=== PATIENT | female | born 2000 | race Caucasian/White ===

== ENCOUNTER 2024-06-21 10:11 | Outpatient (AMB) | payer BC, SELFPAY ==
--- NOTE | 2024-06-21 10:12 | AM.OFFWIN_ITS ---
Intake Vital Signs 06/21/24 10:13 Height 5 ft 10 in Weight 179 lb BMI 25.7 BP 114/66 Blood Pressure Location Lt brachial Position Sitting Pulse 67 Pulse Source Pulse Oximeter Temp 97.9 F Temp Source Oral Pulse Oximetry (%) 99 Oxygen Delivery Method Room Air Intake Visit Reasons: EP-cold symptoms Intake Note: pt c/o cold symptoms. (Cough,congestion,sore throat,swollen tonsils,ear and sinus pressure) Started Thursday Patient Tobacco Use Status: Never used Tobacco Allergies latex [LATEX] Allergy (Mild, Verified 06/21/24 10:12) ITCHING Do you need a note to return to daycare/school/sports/work: Yes HPI HPI Comments History of Present Illness Details Patient is a 23-year-old female complaining of 3 days of a productive cough with thick yellow sputum, head congestion, sinus pain, ear pain, sore throat and swollen tonsils. She states she has used a Neti pot twice, taken some Sudafed which seemed to help a little bit, Advil and Advil cold and sinus which did not seem to help so she stopped taking it. She states she has a history of strep which is usually negative on the rapid but positive on the culture. She says this does not feel like strep to her. She denies any fevers, shortness of breath or chest pain. She denies a history of asthma [facility] Social History Patient Tobacco Use Status: Never used Tobacco Review of Systems Const All systems reviewed & are unremarkable except as noted in HPI and below Physical Exam Vital Signs: Last Vital Signs Temp 97.9 F 06/21/24 10:13 Pulse 67 06/21/24 10:13 BP 114/66 06/21/24 10:13 Pulse Ox 99 06/21/24 10:13 Oxygen Delivery Method Room Air 06/21/24 10:13 BMI result Body Mass Index 25.7 Const General: cooperative, healthy appearing, comfortable and no acute distress Orientation/consciousness: patient oriented x3 Limitations: no limitations HEENT Head: Yes normal to inspection Ears: hearing grossly normal bilaterally, external ears normal and TM's normal bilaterally General nose exam: Normal external nose present, Normal nares present and No nasal discharge present Face and sinus: Yes normal facial exam and Yes sinuses nontender Mouth: Normal oral and palatal mucosa present and moist mucous membranes Throat: Yes tonsils normal, Yes uvula midline and Yes posterior oropharynx abnormal (Erythema) Eyes General: appearance normal, both eyes and all related structures Neck Neck: Yes normal visual inspection Resp Effort & Inspection: normal respiratory effort, able to speak in complete sentences, Actively coughing, no respiratory distress, not tachypneic, no tripod positioning and no use of accessory muscles Auscultation: clear to auscultation bilaterally Cardio Rate: regular rate Rhythm: regular rhythm Heart sounds: normal S1 and S2 Skin General skin exam: no rashes or lesions noted Neuro General: patient oriented x3 Extrem General: Yes normal to inspection and Yes no clubbing, cyanosis or edema Results AMB Rapid Strep AMB Rapid Strep Negative Last Edit by MADDY Edgar on 06/21/24 10:36 Assessment & Plan Assessment & Plan (1) Sinusitis: Code(s): J32.9 - Chronic sinusitis, unspecified Qualifiers: Sinusitis location: maxillary Chronicity: acute Recurrence: non- recurrent Qualified Code(s): J01.00 - Acute maxillary sinusitis, unspecified Plan: Rapid strep in office was negative, we will send culture please on physical exam, not true exudate but a whiteness of the posterior oropharynx. Also sent flu COVID and RSV, recommended she use a Neti pot as well as Flonase. Educated patient on proper use of Flonase. Also recommended a decongestant. Plan See above Orders: Orders SARS-CoV2/FLU/RSV Today J06.9 - Acute upper respiratory infection, unspecified AMB Rapid Strep Screen Today Z13.9 - Encounter for screening, unspecified Throat Culture Today J06.9 - Acute upper respiratory infection, unspecified Coding Level of Care Code New Pt Level 3 (29600) Diagnoses Acute non-recurrent maxillary sinusitis J01.00 Sinusitis location: maxillary Chronicity: acute Recurrence: non-recurrent
[2024-06-21 10:13] VITALS: BP 114/66; PULSE 67; TEMP 36.6; O2SAT 99; BMI 25.7
== END 2024-06-21 11:36 | disposition home or self-care (01) ==
PROVIDERS: PCP Pediatrics; Visit Provider Physician Assistant
DX: Z13.9 Encounter for screening, unspecified (principal); J01.00 Acute maxillary sinusitis, unspecified

== ENCOUNTER 2024-06-21 10:11 | Outpatient (REF) | payer BC, SELFPAY ==
[2024-06-21 13:52] LABS: Influenza A PCR NEGATIVE (Negative); Influenza B PCR NEGATIVE (Negative); Resp Syncy Virus RNA Qual PCR NEGATIVE (Negative); SARS COV2 PCR INHOUSE NEGATIVE (Negative)
== END 2024-06-21 10:12 | disposition home or self-care (01) ==
LOC: HO.LAB 10:11
PROVIDERS: PCP Pediatrics; Visit Provider Physician Assistant
DX: J06.9 Acute upper respiratory infection, unspecified (principal)
CPT/HCPCS: 0241U; 87070; 87880

== ENCOUNTER 2024-09-07 11:25 | Outpatient (AMB) | payer BC, SELFPAY ==
--- NOTE | 2024-09-07 11:32 | AM.OFFWIN_ITS ---
Intake Vital Signs 09/07/24 11:34 Height 5 ft 10 in Weight 178 lb 4 oz BMI 25.6 BP 122/70 Blood Pressure Location Lt brachial Position Sitting Pulse 101 H Pulse Source Pulse Oximeter Temp 98.4 F Temp Source Temporal Artery Scan Pulse Oximetry (%) 99 Oxygen Delivery Method Room Air Intake Visit Reasons: EP-sore throat, pain swallowing, running nose Intake Note: Pt presents to the office today for c/o sore throat, runny nose, pain when swallowing, bilateral ear pain, and a headache x4 days. Patient Tobacco Use Status: Never used Tobacco Allergies latex [LATEX] Allergy (Mild, Verified 09/07/24 11:36) ITCHING HPI HPI Comments History of Present Illness Details History The patient is a 24 year old female presenting with sore throat and nasal congestion. She reports that the sore throat began 3 days ago and has progressively worsened. The pain is especially noticeable upon swallowing, and she experienced sleep disruption due to the discomfort, attempting to alleviate symptoms with Advil and Tylenol, which were ineffective. A low-grade fever of 99.2?F was noted, though not considered a significant fever by the patient. No cough was observed initially, but she started using guaifenesin to manage mucus production, resulting in minimal improvement and the presence of productive cou gh. The patient denies any shortness of breath, wheezing, or history of asthma. She noted a white patch in the back of her throat in the middle of the night last night but it is now gone, she denies a history of tonsil stones. The patient has a history of frequent streptococcal infections in childhood and experienced infectious mononucleosis, characterized by multiple episodes of streptococcal pharyngitis during one summer. Due to her occupation at a [employer] with exposure to numerous children, the patient is at a higher risk for recurrent infections. She expresses concern about being contagious due to an upcoming birthday gathering and wishes to ensure that she is not taking antibiotics unnecessarily. She mentions ear pressure but denies sinus tenderness or significant respiratory symptoms aside from transient wheezing relieved by clearing the airway. Previous treatments for similar conditions involved rapid and culture-based testing, with particular sensitivity to negative rapid tests that later yielded positive culture results. Physical Exam General: Cooperative, healthy appearing, comfortable and no acute distress Orientation/consciousness: Patient oriented x3 Limitations: No limitations Head: Normal to inspection Ears: Hearing grossly normal bilaterally, external ears normal and TM's normal bilaterally Nose: Normal external nose present, Normal nares present and No nasal discharge present Face and sinus: Normal facial exam and Yes sinuses nontender Mouth: Normal oral and palatal mucosa present and moist mucous membranes Throat: Yes tonsils normal, Yes uvula midline. Posterior oropharynx erythema, small area of blanching but not true exudate Eyes: Appearance normal, both eyes and all related structures Neck: Normal visual inspection Respiratory: Clear to auscultation bilaterally. Normal respiratory effort, able to speak in complete sentences, no respiratory distress, not tachypneic, no tripod positioning and no use of accessory muscles Cardiovascular: Regular rate and rhythm. Normal S1 and S2 Skin: No rashes or lesions noted Neuro: Patient oriented x3 Extremities: Normal to inspection and Yes no clubbing, cyanosis or edema PFSH Social History Patient Tobacco Use Status: Never used Tobacco Review of Systems Const All systems reviewed & are unremarkable except as noted in HPI and below Physical Exam Vital Signs: Last Vital Signs Temp 98.4 F 09/07/24 11:34 Pulse 101 H 09/07/24 11:34 BP 122/70 09/07/24 11:34 Pulse Ox 99 09/07/24 11:34 Oxygen Delivery Method Room Air 09/07/24 11:34 BMI result Body Mass Index 25.6 Results AMB Rapid Strep AMB Rapid Strep Negative Last Edit by Natali Tena CMA on 09/07/24 11:45 Assessment & Plan Assessment & Plan (1) Pharyngitis: Code(s): J02.9 - Acute pharyngitis, unspecified Qualifiers: Pharyngitis/tonsillitis etiology: unspecified etiology Qualified Code(s): J02.9 - Acute pharyngitis, unspecified Plan: Plan Acute Pharyngitis: A pharyngeal swab was taken to determine the presence of Streptococcus; initial rapid results were negative, but a culture was ordered due to historical false negatives. Empirical treatment with Augmentin was initiated to ensure coverage prior to the patient's social event. If the culture yields negative results, the patient will be advised to discontinue antibiotics. Symptomatic treatment is recommended including cool liquids and topical throat sprays for pain relief. Guaifenesin use should continue to manage mucus, though resolution of symptoms is anticipated with conservative measures. Flu, covid and rsv testing was sent. Follow-up: Pending culture results, the patient will be informed regarding the need to continue or discontinue antibiotics. Additionally, a note was provided to excuse the patient from work to prevent worsening of symptoms and spread of potential infection. Patient was informed and verbally consented to the use of an ambient scribe for clinic note documentation during this visit Orders: Orders AMB Rapid Strep Screen Today Z13.9 - Encounter for screening, unspecified Throat Culture Today J02.9 - Acute pharyngitis, unspecified SARS-CoV2/FLU/RSV Today J06.9 - Acute upper respiratory infection, unspecified Medications: New amoxicillin-pot clavulanate 875-125 mg 1 tab PO Q12H 14 tabs 0RF Coding Level of Care Code New Pt Level 3 (98548) Diagnoses Pharyngitis, unspecified etiology J02.9 Pharyngitis/tonsillitis etiology: unspecified etiology
[2024-09-07 11:34] VITALS: BP 122/70; PULSE 101; TEMP 36.9; O2SAT 99; BMI 25.6
== END 2024-09-07 12:23 | disposition home or self-care (01) ==
PROVIDERS: PCP Pediatrics; Visit Provider Physician Assistant
DX: J02.9 Acute pharyngitis, unspecified (principal)

== ENCOUNTER 2024-09-07 11:25 | Outpatient (REF) | payer BC, SELFPAY ==
[2024-09-07 14:16] LABS: Influenza A PCR NEGATIVE (Negative); Influenza B PCR NEGATIVE (Negative); Resp Syncy Virus RNA Qual PCR NEGATIVE (Negative); SARS COV2 PCR INHOUSE NEGATIVE (Negative)
== END 2024-09-07 11:26 | disposition home or self-care (01) ==
LOC: HO.LAB 11:25
PROVIDERS: PCP Pediatrics; Visit Provider Physician Assistant
DX: J02.9 Acute pharyngitis, unspecified (principal)
CPT/HCPCS: 0241U; 87070; 87880